=== PATIENT | female | born 1960 | race African-American/Black ===

== ENCOUNTER 2016-12-23 20:05 | Emergency (ER) | payer MEDICAID ==
[2016-12-23 20:21] VITALS: BP 139/80; BMI 30.2
--- NOTE | 2016-12-23 20:35 | DR.GENAD ---
HPI - PCP Primary Care Physician: NFD - Complaint/Symptoms Chief Complaint Doctors Comments: Complaint of reflux x weeks with burning. New Rx prescribed but not filled. Chief Complaint:: PT STATES" I WAS HOME TRYING TOO EAT A HOTDOG. MY CHEST STARTED HURTING I GOT INDIGESTION REAL BAD, THEN MY LT ARM AND NECK STARTED HURTING. IT HAPPENED WHEN I HAD A STROKE " - Nurses notes reviewed Nurses Notes Review: Yes - Source History Provided: Patient - Mode of Arrival Mode of Arrival: Ambulatory - Timing Onset of Chief Complaint: 12/22/16 Came on: Suddenly - Duration Duration: Minutes - Location Location: esophagus - Severity Severity: Moderate - Modifying Factors Worsens:: hotdog - Associated Signs and Symptoms Associated Signs and Symptoms: burning feeling, pain to neck - Other History Other History: cva PMH - PMH Past Medical History: Yes Past Medical History: Arthritis, CVA, Hypertension Past Surgical History: No - Family History History of Family Medical Conditions: No - Social History Type of Tobacco Use: Cigarettes Alcohol Use: Occasionally Do you use any recreational Drugs:: No Lives With: Family Lives Where: Home - infectious screening In the last 2 months have you had wt loss of >10#?: NO Have you had fever, night sweats or hemotysis?: No Have you traveled outside the country in the last 6 months?: No Isolation: Standard ROS - Review of Systems Constitutional: No Symptoms Reported Eyes: No Symptoms Reported ENTM: No Symptoms Reported Respiratoy: No Symptoms Reported Cardiovascular: No Symptoms Reported Gastrointestinal/Abdominal: Other (indigestion) Genitourinary: No Symptoms Reported Neurological: No Symptoms Reported Musculoskeletal: No Symptoms Reported Integumentary: No Symptoms Reported Hematologic/Lymphatic: No Symptoms Reported Endocrine: No Symptoms Reported Psychiatric: No Symptoms Reported PE - Vital Signs Vitals: Temperature 98.6 F Pulse Rate 98 Respiratory Rate 18 Blood Pressure 139/80 O2 Sat by Pulse Oximetry 100 - General Limitations: No Limitations General Appearance: Alert, In No Apparent Distress - Head Head Exam: Normal Inspection - Eyes Eye exam: Normal Appearance, EOMI. negative: Scleral Icterus, Conjunctival Injection - ENT ENT Exam: Normal Exam Throat Exam: Normal Inspection - Neck Neck Exam: Normal Inspection, Full ROM, Trachea Midline - Chest Chest Inspection: Normal Inspection - Respiratory Respiratory Exam: Normal Lung Sounds Bilat. negative: Accessory Muscle Use, Respiratory Distress Respiratory Exam: Bilateral Clear to Auscultation - Cardiovascular Cardiovascular Exam: Regular Rate, Normal Rhythm - Abdominal Exam Abdominal Exam: Normal Inspection, Normal Bowel Sounds, Soft. negative: Distention, Tenderness, Guarding - Extremities Extremities Exam: Normal Inspection, Full ROM - Back Back Exam: Normal Inspection - Neurologic Neurological Exam: Alert, Oriented X3, CN II-XII Intact - Psychiatric Psychiatric Exam: Normal Affect - Skin Skin Exam: Intact, Normal Color ROR - Labs Reviewed Result Diagrams: 12/23/16 21:20 12/23/16 21:20 Laboratory: WBC 5.4 X10^3/uL (3.6-10.0) 12/23/16 21:20 RBC 4.31 X10^6/uL (3.5-5.4) 12/23/16 21:20 Hgb 12.4 g/dL (12.0-16.0) 12/23/16 21:20 Hct 37.0 % (36.0-47.0) 12/23/16 21:20 MCV 85.9 fL (80.0-100.0) 12/23/16 21:20 MCH 28.9 pg (27.0-34.0) 12/23/16 21:20 MCHC 33.7 g/dL (33.0-35.0) 12/23/16 21:20 RDW 14.3 % (11.6-16.5) 12/23/16 21:20 Plt Count 196 X10^3/uL (150.0-450.0) 12/23/16 21:20 MPV 9.0 fL (7.4-11.0) 12/23/16 21:20 Neut % 59.6 % (42.0-75.0) 12/23/16 21:20 Lymph % 26.4 % (21.0-51.0) 12/23/16 21:20 Ponce % 9.1 % (0.0-13.0) 12/23/16 21:20 Eos % 3.8 % (0.9-2.9) H 12/23/16 21:20 Baso % 1.1 % (0.2-1.0) H 12/23/16 21:20 Neut # 3.2 x10^3/uL (2.2-4.8) 12/23/16 21:20 Lymph # 1.4 X10^3/uL (1.3-2.9) 12/23/16 21:20 Ponce # 0.5 x10^3/uL (0.3-0.8) 12/23/16 21:20 Eos # 0.2 x10^3/uL (0.0-0.2) 12/23/16 21:20 Baso # 0.1 X10^3/uL (0.0-0.1) 12/23/16 21:20 Absolute Nucleated RBC 0.0 /100WBC 12/23/16 21:20 INR Target Range - 12/23/16 21:20 INR 1.09 (0.8-1.3) 12/23/16 21:20 PTT 31.4 SECONDS (22.9-36.5) 12/23/16 21:20 PTT Comment - 12/23/16 21:20 Sodium 142 mmol/L (136-145) 12/23/16 21:20 Corrected Sodium 142 mmol/L (136-145) 12/23/16 21:20 Potassium 4.0 mmol/L (3.5-5.1) 12/23/16 21:20 Chloride 105 mmol/L (98-107) 12/23/16 21:20 Carbon Dioxide 30.5 mmol/L (21-32) 12/23/16 21:20 BUN 22 mg/dL (7-18) H 12/23/16 21:20 Creatinine 1.60 mg/dL (0.55-1.02) H 12/23/16 21:20 Est GFR (MDRD) Af Amer 43 (>60) L 12/23/16 21:20 Est GFR (MDRD) Non-Af 35 (>60) L 12/23/16 21:20 Glucose 120 mg/dL (65-99) H 12/23/16 21:20 Calcium 8.8 mg/dL (8.5-10.1) 12/23/16 21:20 Corrected Calcium TNP 12/23/16 21:20 Total Bilirubin 0.50 mg/dL (0.2-1.0) 12/23/16 21:20 AST 17 Units/L (15-37) 12/23/16 21:20 ALT 20 Units/L (12-78) 12/23/16 21:20 Alkaline Phosphatase 68 Units/L (46-116) 12/23/16 21:20 Creatine Kinase 157 Units/L (26-192) 12/23/16 21:20 CK-MB (CK-2) 1.1 ng/mL (0-4.0) 12/23/16 21:20 CK/CKMB % Calc 0.7 % (<4) 12/23/16 21:20 Troponin I < 0.02 ng/mL (0-1.5) 12/23/16 21:20 Total Protein 8.0 g/dL (6.4-8.2) 12/23/16 21:20 Albumin 3.9 g/dL (3.4-5.0) 12/23/16 21:20 Globulin 4.1 g/dL (2.5-4.5) 12/23/16 21:20 Albumin/Globulin Ratio 1.0 Ratio (1.1-2.1) L 12/23/16 21:20 - XRAY XRAY Interpreted by: Radiologist XRAY Findings: CXR: cardiomegaly - EKG Rate: 97 [place]: Normal Rhythm: NSR Block: None Hypertrophy: LAE ST: Normal - Diagnosis Discharge Problem: Indigestion - Discharge Plan Condition: Stable Prescriptions: Aspirin EC [ECOTRIN 325 MG *] 325 mg PO DAILY #90 tab Calcium Carbonate [Tums] 500 mg PO TID #300 chw - Follow ups/Referrals Follow ups/Referrals: NFD,None [Primary Care Provider] - 3 days - Instructions Instructions: Heartburn
[2016-12-23] MEDS ORDERED: ASPIRIN PO ONE (20:44)
[2016-12-23] MEDS ORDERED: LEVSIN/MAALOX/LIDOC VISC PO ONE (20:46)
[2016-12-23] MEDS ORDERED: LEVSIN/MAALOX/LIDOC VISC ONE (20:50)
[2016-12-23] MEDS ORDERED: ASPIRIN ONE (20:50)
--- NOTE | 2016-12-23 21:08 | RAD ---
HISTORY: Chest pain Study: Single view chest. Comparison: None. Findings: The trachea is midline. The cardiac silhouette is enlarged without evidence for CHF. The under aer ated lungs are clear without focal infiltrate or effusion. The bony thorax is unremarkable. IMPRESSION: 1. Cardiomegaly without evidence for CHF, consolidation, or effusion. Reported By:
[2016-12-23 21:29] LABS: BASOPHILS # (AUTO) 0.1 X10^3/uL (0.0-0.1); BASOPHILS % (AUTO) 1.1 % (0.2-1.0); EOSINOPHILS # (AUTO) 0.2 x10^3/uL (0.0-0.2); EOSINOPHILS % (AUTO) 3.8 % (0.9-2.9); HEMOGLOBIN 12.4 g/dL (12.0-16.0); LYMPHOCYTES # (AUTO) 1.4 X10^3/uL (1.3-2.9); LYMPHOCYTES % (AUTO) 26.4 % (21.0-51.0); MEAN CORPUSCULAR HEMOGLOBIN 28.9 pg (27.0-34.0); MEAN CORPUSCULAR HGB CONC 33.7 g/dL (33.0-35.0); MEAN CORPUSCULAR VOLUME 85.9 fL (80.0-100.0); MONOCYTES # (AUTO) 0.5 x10^3/uL (0.3-0.8); MONOCYTES % (AUTO) 9.1 % (0.0-13.0); NEUTROPHILS # (AUTO) 3.2 x10^3/uL (2.2-4.8); NEUTROPHILS % (AUTO) 59.6 % (42.0-75.0); PLATELET COUNT 196 X10^3/uL (150.0-450.0); RED BLOOD COUNT 4.31 X10^6/uL (3.5-5.4); RED CELL DISTRIBUTION WIDTH 14.3 % (11.6-16.5); WHITE BLOOD COUNT 5.4 X10^3/uL (3.6-10.0)
[2016-12-23 21:43] LABS: BLOOD UREA NITROGEN 22 mg/dL (7-18); CALCIUM 8.8 mg/dL (8.5-10.1); CARBON DIOXIDE 30.5 mmol/L (21-32); CHLORIDE 105 mmol/L (98-107); COR NA(FOR HYPERGLY) 142 mmol/L (136-145); GLUCOSE 120 mg/dL (65-99); SODIUM 142 mmol/L (136-145); TROPONIN I < 0.02 ng/mL (0-1.5); eGFR BLACK RACES 43 (>60); eGFR NON BLACK RACES 35 (>60)
[2016-12-23 21:47] LABS: ALANINE AMINOTRANSFERASE 20 Units/L (12-78); ALBUMIN 3.9 g/dL (3.4-5.0); ALKALINE PHOSPHATASE 68 Units/L (46-116); ASPARTATE AMINO TRANSFERASE 17 Units/L (15-37); CKMB % 0.7 % (<4); CREATINE KINASE 157 Units/L (26-192); CREATINE KINASE MB 1.1 ng/mL (0-4.0)
[2016-12-23] MEDS ORDERED: PROTONIX TAB 40 MG PO ONE ×2 (21:59→22:03)
== END 2016-12-23 22:07 | disposition home or self-care (01) ==
LOC: ER 20:15
DX: K30 Functional dyspepsia (principal); I51.7 Cardiomegaly
CPT/HCPCS: 36415; 71010; 80053; 82550; 82553; 84484; 85025; 85610; 85730; 93005; 93010; 99283

== ENCOUNTER → 2017-01-01 | Outpatient (CLI) | payer MEDICAID ==
[2016-12-23 20:21] VITALS: BP 139/80
--- NOTE | 2017-01-01 16:46 | RAD ---
Three views of the right foot Indication: Chronic right foot pain. Findings: Moderate midfoot osteoarthrosis is noted evidenced by hypertrophic new bone formation and osteophyte formation within dorsal aspect of the midfoot. No acute fracture or malalignment of the r ight foot. Lisfranc joint alignment is maintained. Mild bunion deformity of the great toe. Degenerat chuy change are also present within the great toe IP joint. No localizing soft tissue swelling. Impression: Moderate midfoot osteoarthrosis along with degenerative changes of the great toe IP joint. No acute fracture, dislocation or soft tissue swelling within the right foot. Reported By:
[2017-01-01 16:56] LABS: C-REACTIVE PROTEIN 3.5 mg/L (0-3.0); URIC ACID 7.7 mg/dL (2.6-6.0)
[2017-01-05 07:40] LABS: ANTI-NUCLEAR ANTIBODY TEST Detected (None Detected)
[2017-01-06 07:31] LABS: ANA PATTERN NUCLEOLAR PATTERN
== END ==
LOC: LAB 16:05
PROVIDERS: ATTEND Psychiatry & Neurology Neurology
DX: M79.671 Pain in right foot (principal); R68.2 Dry mouth, unspecified
CPT/HCPCS: 36415; 73630; 84550; 85652; 86140; 86200; 86235; 86308

== ENCOUNTER → 2017-01-06 | Outpatient (CLI) | payer MEDICAID ==
[2016-12-23 20:21] VITALS: BP 139/80
[2017-01-06 09:29] LABS: BILIRUBIN,URINE NEGATIVE (NEGATIVE); BLOOD/HEMOGLOBIN,URINE NEGATIVE (NEGATIVE); GLUCOSE, URINE NEGATIVE (NEGATIVE); KETONES,URINE NEGATIVE (NEGATIVE); LEUKOCYTE ESTERASE ,URINE 1+ (NEGATIVE); NITRITES,URINE NEGATIVE (NEGATIVE); PROTEIN,URINE 1+ (NEGATIVE); UROBILINOGEN,URINE 1+ (NORMAL)
[2017-01-06 10:11] LABS: APPEARANCE,URINE CLEAR (CLEAR); BACTERIA,URINE TRACE /HPF (NEGATIVE); COLOR,URINE YELLOW (YELLOW); RBC,URINE 0 /HPF (NEGATIVE); SQUAMOUS EPITHELIAL CELL,UR NEGATIVE /HPF (NEGATIVE)
== END ==
LOC: LAB 08:44
PROVIDERS: ATTEND Nurse Practitioner Family
DX: R31.29 Other microscopic hematuria (principal)
CPT/HCPCS: 81001